=== PATIENT | female | born 1970 | race Caucasian/White ===

== ENCOUNTER → 2016-11-15 | Day surgery (SDC) | payer BC ==
[2016-11-11 10:00] LABS: BASOPHIL % 0.9 % (0-2); PLATELET COUNT 311 x10^3mcL (130-400); RED CELL DISTRIBUTION WIDTH 14.1 % (11.5-14.5)
[2016-11-11 10:29] LABS: ALBUMIN 4.1 g/dL (3.4-5.0); ALKALINE PHOSPHATASE 65 U/L (46-116); ALT/SGPT 23 U/L (14-59); AST/SGOT 12 U/L (15-37); BILIRUBIN TOTAL 0.5 mg/dL (0.20-1.00); CALCIUM 8.9 mg/dL (8.5-10.1); CARBON DIOXIDE 27.4 mmol/L (21-32); CHLORIDE SERUM 103 mmol/L (98-107); CREATININE SERUM 0.5 mg/dL (0.6-1.0); GFR1 > 60 mL/min; GLUCOSE SERUM 86 mg/dL (74-106); POTASSIUM SERUM 4.2 mmol/L (3.5-5.1); SODIUM SERUM 137 mmol/L (136-145)
[~2016-11-15] VITALS: Ht 152.4 cm; Wt 61.7 kg
[2016-11-15 07:15] VITALS: BP 116/68
[2016-11-15 16:18] VITALS: BP 120/68
== END | disposition home or self-care (01) ==
LOC: DS 07:01 → MA 10:00 → DS 10:00 → OR 11:30
PROVIDERS: Surgery
PROC: 0HBT0ZZ Excision of Right Breast, Open Approach (ICD-10-PCS; principal; 2016-11-15 11:30)
DX: D24.1 Benign neoplasm of right breast (principal); N60.11 Diffuse cystic mastopathy of right breast; Z68.26 Body mass index [BMI] 26.0-26.9, adult
CPT/HCPCS: J0690; J2001